=== PATIENT | female | born 1950 | race Caucasian/White ===

== ENCOUNTER → 2017-06-28 | Outpatient (CLI) | payer OTHER ==
[~2017-06-28] MED LIST: ALLOPURINOL 10100 M1 PO; TRAMADOL 50 MG50 MG PO
== END ==
LOC: M.RAD 12:15
DX: R05 Cough (principal)

== ENCOUNTER → 2017-10-05 | Outpatient (CLI) | payer OTHER | LOC: M.RAD 10:30 | DX: Z12.31 Encounter for screening mammogram for malignant neoplasm of breast (principal) ==

== ENCOUNTER → 2018-10-06 | Outpatient (CLI) | payer OTHER | LOC: M.RAD 08-30 15:51 | DX: Z12.31 Encounter for screening mammogram for malignant neoplasm of breast (principal) ==

== ENCOUNTER → 2018-10-13 | Outpatient (CLI) | payer OTHER | LOC: M.ULTRA 09:08 | DX: N64.59 Other signs and symptoms in breast (principal) ==

== ENCOUNTER → 2018-10-25 | Outpatient (CLI) | payer OTHER | LOC: M.RAD 10-19 13:30 | DX: M85.88 Other specified disorders of bone density and structure, other site (principal) ==

== ENCOUNTER → 2018-11-02 | Outpatient (CLI) | payer OTHER | LOC: M.CT 09:58 | DX: N20.0 Calculus of kidney (principal); R19.8 Other specified symptoms and signs involving the digestive system and abdomen; R10.31 Right lower quadrant pain; R10.32 Left lower quadrant pain; K57.30 Diverticulosis of large intestine without perforation or abscess without bleeding; F41.9 Anxiety disorder, unspecified; Z79.899 Other long term (current) drug therapy; Z87.891 Personal history of nicotine dependence; Z88.8 Allergy status to other drugs, medicaments and biological substances; Z87.442 Personal history of urinary calculi ==

== ENCOUNTER 2019-03-16 12:30 | Emergency (ER) | payer OTHER ==
[~2019-03-16] VITALS: Ht 165.1 cm; Wt 58.1 kg
[2019-03-16 13:30] LABS: HEMATOCRIT 41.4 % (37.0-47.0); HEMOGLOBIN 14.4 gm/dL (12.0-15.0); MCH 31.9 pg (26.0-34.0); MCHC 34.8 g/dL (28.0-37.0); MCV 91.6 fL (80.0-100.0); MPV 8.2 fl. (7.2-11.1); RBC 4.52 mil/uL (4.20-5.00); RDW-CV 14.7 % (10.5-14.5); WBC 4.9 thou/uL (4.0-11.0)
[2019-03-16 13:40] LABS: CALCIUM 9.3 mg/dL (8.5-10.1); CREATININE 0.7 mg/dL (0.6-1.3); POTASSIUM 4.3 mmol/L (3.5-5.1)
[2019-03-16] MEDS ORDERED: ATIVAN1 M1 PO (13:57)
[2019-03-16 14:13] VITALS: BP 150/76
--- NOTE | 2019-03-16 15:42 | EKG ---
[place] [address] ELECTROCARDIOGRAM REPORT Name: MIKAEL MORRISSEY Room: [facility]#: [id number] Admission: 03/16/19 Attend Phys: Discharge: 03/16/19 Date of : 54 Report #: [id number] THIS REPORT FOR: //name// [facility] ED Test Date: 2019-03-16 Test Time: 12:57:04 Pat Name: MIKAEL MORRISSEY Department: Room: Gender: F Corporate Associate Attorney: FERMÍN : 1950 Requested By: Jayson Casiano Order Number: [id number] MD: Rajiv Pickett Measurements Intervals [place] Rate: 65 P: 73 AL: 179 QRS: -34 QRSD: 94 T: 25 QT: 427 QTc: 444 Interpretive Statements Sinus rhythm Possible left atrial enlargement Left axis deviation Anteroseptal infarct, age indeterminate, possible Compared to ECG 09/22/2016 17:13:26 Myocardial infarct finding now present Electronically Signed On 03-16-2019 15:42:50 [employer] by Rajiv Pickett [email or web address] <ELECTRONICALLY SIGNED> By: Rajiv Pickett MD, FACC 03/16/19 1542 [id number] Rajiv Pickett MD, FAC /EPI
== END 2019-03-16 14:14 | disposition home or self-care (01) ==
LOC: M.ERS 12:30
PROVIDERS: Emergency Medicine Emergency Medical Services
DX: F41.9 Anxiety disorder, unspecified (principal); F17.210 Nicotine dependence, cigarettes, uncomplicated; Z87.442 Personal history of urinary calculi; Z90.49 Acquired absence of other specified parts of digestive tract; Z88.8 Allergy status to other drugs, medicaments and biological substances

== ENCOUNTER → 2019-04-06 | Outpatient (CLI) | payer OTHER ==
[~2019-04-06] MED LIST changes: +ATIVAN1 M1 PO
== END ==
LOC: M.ULTRA 10:51
DX: R11.0 Nausea (principal); R14.0 Abdominal distension (gaseous)

== ENCOUNTER → 2019-10-11 | Outpatient (CLI) | payer OTHER | LOC: M.RAD 10:39 | PROVIDERS: ATTEND Family Medicine | DX: Z12.31 Encounter for screening mammogram for malignant neoplasm of breast (principal) ==

== ENCOUNTER → 2020-10-10 | Outpatient (CLI) | payer OTHER | LOC: M.RAD 08:00 | PROVIDERS: ATTEND Family Medicine | DX: Z12.31 Encounter for screening mammogram for malignant neoplasm of breast (principal); M85.80 Other specified disorders of bone density and structure, unspecified site; Z78.0 Asymptomatic menopausal state ==